=== PATIENT | female | born 1975 | race Caucasian/White ===

== ENCOUNTER 2018-03-31 13:08 | Emergency (ER) | payer MEDICAID ==
[~2018-03-31] VITALS: Ht 165.1 cm; Wt 79.0 kg
[2018-03-31 14:55] VITALS: BP 143/77
[2018-03-31] MEDS ORDERED: KETOROLAC 60MG/2ML VIAL IM ONE (15:15)
== END 2018-03-31 17:37 | disposition home or self-care (01) ==
LOC: ER 13:08
DX: M25.512 Pain in left shoulder (principal); M25.511 Pain in right shoulder; M25.542 Pain in joints of left hand; M25.541 Pain in joints of right hand; Z76.0 Encounter for issue of repeat prescription; M19.90 Unspecified osteoarthritis, unspecified site
CPT/HCPCS: 99283; J1885

== ENCOUNTER 2018-06-20 12:18 | Emergency (ER) | payer MEDICAID ==
[~2018-06-20] VITALS: Ht 167.6 cm; Wt 86.0 kg
[2018-06-20 12:25] VITALS: BP 137/79
[2018-06-20] MEDS ORDERED: DEXAMETHASONE 10 MG/ML VIAL IM ONE (13:00)
== END 2018-06-20 13:15 | disposition home or self-care (01) ==
LOC: ER 12:47
DX: M79.1 Myalgia (principal); M06.9 Rheumatoid arthritis, unspecified; Z98.890 Other specified postprocedural states
CPT/HCPCS: 96372; 99283; J1100; J7030